=== PATIENT | male | born 1955 ===

== ENCOUNTER 2018-12-07 00:32 | Emergency (ER) | payer OTHER, BC ==
[2018-12-07 00:39] VITALS: RESP 16; TEMP 97.7
[2018-12-07] MEDS ORDERED: TETRACAINE HCL 0.5 % OPHTH 1 DROP SOL ONE (00:54)
[2018-12-07 01:18] VITALS: BP 117/75; PULSE 72; O2SAT 98
[2018-12-14] MEDS ORDERED: PROPARACAINE HCL 0.5% OPHTHALMIC SOL OP ONE (09:12)
== END 2018-12-07 01:15 | disposition home or self-care (01) | DRG 125 ==
LOC: ED 00:32
DX: S05.01XA Injury of conjunctiva and corneal abrasion without foreign body, right eye, initial encounter (principal)
CPT/HCPCS: 99283; A9270-GY